=== PATIENT | male | born 1995 | race Two or more races ===

== ENCOUNTER → 2022-06-18 | Emergency (ER) | payer OTHER, MEDICAID ==
[~2022-06-18] VITALS: Ht 172.7 cm; Wt 81.8 kg
[2022-06-18 00:52] VITALS: BP 129/71
== END | disposition left against medical advice (07) ==
LOC: ER 00:32
DX: L02.414 Cutaneous abscess of left upper limb (principal); Z53.21 Procedure and treatment not carried out due to patient leaving prior to being seen by health care provider